=== PATIENT | male | born 1975 | race Caucasian/White ===

== ENCOUNTER 2019-09-09 16:27 | Inpatient (IN) | payer SELFPAY ==
[2019-09-09 16:39] VITALS: BP 107/57; PULSE 103; RESP 18; TEMP 36.8; O2SAT 94
--- NOTE | 2019-09-09 17:17 | ECG_ITS ---
[facility] Test Date: 2019-09-09 Pat Name: Maciel Jj Department: Room: Gender: Male Patient Centered Care Specialist: : 1975 Requested By: Carmina Babin Order Number: [id number] Lacey MD: Stephany rBaden M.D. Measurements Intervals [place] Rate: 87 P: 29 WY: 138 QRS: -60 QRSD: 97 T: 49 QT: 361 QTc: 437 Interpretive Statements SINUS RHYTHM PATTERN CONSISTENT WITH PULMONARY DISEASE INCOMPLETE RIGHT BUNDLE BRANCH BLOCK [90+ ms QRS DURATION, TERMINAL R IN V1/V2, 40+ ms S IN I/aVL/V4/V5/V6] LEFT ANTERIOR FASCICULAR BLOCK [QRS AXIS <= -45, QR IN I, RS IN II] No previous ECG available for comparison Electronically Signed On 09-09-2019 20:35:14 CDT by Stephany Braden M.D. [email or web address]
[2019-09-09 17:18] VITALS: RESP 18
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
[2019-09-09 17:38] LABS: Basophils # 0.1 10^3/uL (0.0-0.1); Basophils % 0.8 %; Eosinophils # 0.1 10^3/uL (0.0-0.8); Eosinophils % 0.9 %; Hematocrit 51.7 % (42.0-52.0); Hemoglobin 16.9 g/dL (11.7-16.6); Lymphocytes # 2.3 10^3/uL (0.8-4.8); Lymphocytes % 25.8 %; Mean Corpuscular HGB Conc 32.7 g/dL (30.0-36.0); Mean Corpuscular Hemoglobin 28.5 pg (28.0-34.0); Mean Corpuscular Volume 87.2 fL (80-94); Monocytes # 0.7 10^3/uL (0.2-0.9); Neutrophils # 5.76 10^3/uL (1.8-7.7); Neutrophils % 64.2 %; Nucleated Red Blood Cells % 0 %; Platelet Count 266 10^3/cmm (130-400); Red Blood Count 5.93 10^6/uL (4.1-5.3); Red Cell Distribution Width 13.8 % (12.1-15.1)
[2019-09-09 17:48] LABS: Amphetamines Screen Urine Positive (Negative); Barbiturates Screen Urine Negative (Negative); Benzodiazepines Screen Urine Negative (Negative); Cocaine Screen Urine Negative (Negative); Opiate Screen Urine Negative (Negative); PCP Screen Urine Negative (Negative); THC Screen Urine Negative (Negative)
[2019-09-09] MEDS: LORazepam 1 mg Tablet PO (17:55)
[2019-09-09 18:13] LABS: Alanine Aminotransferase 17 U/L (0-41); Albumin Level 4.3 g/dL (3.5-5.2); Alcohol Level 209 mg/dL (0-10); Alkaline Phosphatase 90 IU/L (40-130); Anion Gap 17.1 (5-19); Aspartate Amino Transferase 23 U/L (0-40); Blood Urea Nitrogen 10 mg/dL (6-20); Calcium 9.1 mg/dL (8.5-10.5); Carbon Dioxide 22 mmol/L (22-29); Chloride 108 mmol/L (98-107); Globulin 2.5 g/dL (1.3-4.6); Glomerular Filtration Rate 90.8 mL/min (90-130); Glucose 122 mg/dL (65-115); Osmolality Calculated 293 mOsm/kg (285-295); Phenytoin Dilantin 0.8 ug/mL (10-20); Potassium 4.1 mmol/L (3.5-5.1); Sodium 143 mmol/L (136-145); Thyroid Stimulating Hormone 1.88 uIU/mL (0.27-4.20); Total Bilirubin 0.4 mg/dL (0.15-1.2); Total Protein 6.8 g/dL (6.6-8.7); Valproic Acid Level 2.8 ug/mL (50-100)
[2019-09-09 18:14] LABS: Acetaminophen < 5.0 ug/mL (10-30); Salicylate < 0.3 mg/dL (3-10)
[2019-09-09 18:50] LABS: Lithium 0.1 mmol/L (0.6-1.2)
[2019-09-09 19:18] VITALS: BP 104/65; PULSE 64; RESP 16; TEMP 36.1; O2SAT 98
[2019-09-09 19:23] VITALS: BP 104/65; PULSE 64; RESP 16; TEMP 36.1; O2SAT 98
[2019-09-09 20:22] VITALS: BP 113/76; PULSE 85; RESP 15; TEMP 36.7; O2SAT 96
[2019-09-09] MEDS: hyDROXYzine 25 mg Capsule 50 MG PO (21:34)
[2019-09-09] MEDS: trazodone 50 mg Tablet PO (21:34)
--- NOTE | 2019-09-10 03:49 | PC.NURSE ---
At HS, pt was given PRN trazodone and vistaril per request.
[2019-09-10 06:00] VITALS: BP 115/76; PULSE 67; RESP 18; TEMP 37.1; O2SAT 95
[2019-09-10 14:00] VITALS: BP 112/76; PULSE 96; RESP 20; TEMP 36.9; O2SAT 97
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
[2019-09-10] MEDS: citalopram 20 mg Tablet 10 MG PO (19:50)
[2019-09-10 20:50] VITALS: BP 114/81; PULSE 78; RESP 18; TEMP 36.9; O2SAT 97
[2019-09-10] MEDS: trazodone 50 mg Tablet PO (21:20)
[2019-09-10] MEDS: hyDROXYzine 25 mg Capsule 50 MG PO (21:20)
[2019-09-11 06:00] VITALS: BP 120/81; PULSE 61; RESP 12; TEMP 36.7; O2SAT 97
[2019-09-11] MEDS: citalopram 20 mg Tablet PO (08:28)
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
[2019-09-11 14:00] VITALS: BP 168/82; PULSE 78; RESP 20; TEMP 36.6; O2SAT 98
[2019-09-11 20:50] VITALS: BP 108/73; PULSE 70; RESP 17; TEMP 38.1; O2SAT 97
[2019-09-11] MEDS: hyDROXYzine 25 mg Capsule 50 MG PO (21:38)
[2019-09-11] MEDS: trazodone 50 mg Tablet PO (21:39)
--- NOTE | 2019-09-11 23:47 | PC.NURSE ---
pt given prn trazodone and vistaril per request.
[2019-09-12 06:00] VITALS: BP 105/75; PULSE 85; RESP 17; TEMP 36.7; O2SAT 96
[2019-09-12] MEDS: citalopram 20 mg Tablet PO (08:29)
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
[2019-09-12 12:47] VITALS: BP 105/75; PULSE 85; RESP 17; TEMP 36.7; O2SAT 96
== END 2019-09-12 13:20 | disposition home or self-care (01) | DRG 882 ==
LOC: ER 18:28 → NP 19:11
PROVIDERS: Emergency Medicine; Admitting Provider Psychiatry & Neurology Psychiatry; Visit Provider Psychiatry & Neurology Psychiatry
DX: F43.24 Adjustment disorder with disturbance of conduct (principal); F10.10 Alcohol abuse, uncomplicated; F41.8 Other specified anxiety disorders; Y90.7 Blood alcohol level of 200-239 mg/100 ml
CPT/HCPCS: 12345; 36415; 80053; 80156; 80164; 80178; 80185; 80306; 80307; 84443; 85025; 93005; 99284

== ENCOUNTER → 2020-04-21 08:14 | Outpatient (BNVA) | payer OTHER, SELFPAY | PROVIDERS: Visit Provider Psychiatry & Neurology Psychiatry | DX: Z03.89 Encounter for observation for other suspected diseases and conditions ruled out (principal); Z79.899 Other long term (current) drug therapy | CPT/HCPCS: 80048; 80061; 83036; 84443; 85025 ==

== ENCOUNTER 2020-10-11 15:12 | Emergency (ER) | payer SELFPAY ==
[2020-10-11 15:24] VITALS: BP 126/94; PULSE 96; RESP 18; TEMP 37.2; O2SAT 98; BMI 22.8
[2020-10-11] MEDS: lidocaine 1% INJ 20 mL INTRADERMA (15:33)
[2020-10-11] MEDS: tetanus-dipt-pertussis 0.5 mL SDV IM (15:34)
--- NOTE | 2020-10-11 15:37 | W.ED.WOUNDLC ---
HPI - Wound/Laceration General: Chief Complaint: Wound/Laceration Stated Complaint: FISH HOOK EMBEDDED IN L HAND Time Seen by Provider: 10/11/20 15:20 Source: patient Mode of arrival: ambulatory Limitations: no limitations History of Present Illness: HPI narrative: 45-year-old male who presents to the emergency department after a fishhook got stuck in his left hand. This happened about 30 minutes ago. He was going through his drawer getting ready for a fishing trip when there was apparently a fishhook in the drawer that got stuck in the palm of his left hand. He attempted to remove it but was unsuccessful so he came to the emergency department to be evaluated. Onset (ago): minute(s) (30) Extremity Location: Left: hand Place: home Patient tetanus UTD: No Context: accidental Associated symptoms: Denies chills, fever(s), foreign body sensation, inability to move, nausea, numbness, pain, syncope or vomiting Review of Systems General: Reports: 10 or more systems reviewed and unremarkable except in HPI and below Const: Denies: fever(s) or chills Card: Denies: syncope GI: Denies: nausea or vomiting [facility] ED PFSH: Medical History Encounter for observation for other suspected diseases and conditions ruled out PTSD (post-traumatic stress disorder) Social History Smoking and tobacco status: current some day smoker cigarettes and e-cigarettes E-Cigarette Details: vaporizer device Quit status (tobacco): not considering quitting Second hand smoke exposure: Yes Smoking risk assessment/counseling performed?: Yes Tobacco counseling given: counseling >3 minutes Current gender identity: Male Physical Exam Const: COMMON NORMALS: no acute distress, average body habitus, patient oriented x3, no limitations, healthy appearing, alert and well nourished HENMT: COMMON NORMALS: normocephalic, atraumatic and moist oral mucous membranes HEAD & SCALP: normocephalic and atraumatic Neck/C-Spine: COMMON NORMALS: no JVD Resp: COMMON NORMALS: normal respiratory effort, No retractions, No use of accessory muscles, clear to auscultation bilaterally and percussion normal AUSCULTATION: clear to auscultation bilaterally PERCUSSION: percussion normal Cardio: COMMON NORMALS: no JVD, regular rate, regular rhythm, S1 normal heart sound present, S2 normal heart sound present, No gallops present (Cardio), No clicks present (Cardio), No murmurs present (Cardio), No rub (Cardio) and Peripheral pulses 2+ throughout RATE: regular rate RHYTHM: regular rhythm HEART SOUNDS: S1 normal heart sound present and S2 normal heart sound present PERIPHERAL PULSES: Peripheral pulses 2+ throughout Extremity: COMMON NORMALS: normal to inspection, full ROM, capillary refill normal, no calf tenderness and no pedal edema LEFT UPPER EXTREMITY: Yes hand & digits (fish hook in the proximal palm. marisa embedded. No other injuries) Neuro: COMMON NORMALS: patient oriented x3 SENSORIUM/ORIENTATION: Yes alert Skin: COMMON NORMALS: no rashes or lesions noted, no wounds, turgor normal, no jaundice, no petechiae and no mottling GENERAL SKIN EXAM: no rashes or lesions noted and turgor normal Procedures Foreign Body Removal Time Out Performed: yes Site: left and hand Description of foreign body: fish hook Sedation/Analgesia: none Technique: removal with forceps and incision made to facilitate removal Confirmed by:: direct visualization Complications: none Post-procedure exam: awake, alert, normal BP, normal HR and normal O2 sat Neurovascular: normal distal pulse, normal capillary fill, distal light touch sensation intact, distal motor function normal, no signs of compartment syndrome and no change from pre-procedure Course Vital Signs: Vital signs: Vital Signs Temperature 98.9 F 10/11/20 15:24 Pulse Rate 89 10/11/20 15:38 Respiratory Rate 18 10/11/20 15:38 Blood Pressure 121/89 10/11/20 15:38 Pulse Oximetry 97 10/11/20 15:38 MDM - Wound/Laceration MDM Narrative: Medical decision making narrative: This male presents to the ED with a fishhook in his left palm. No other injuries. He was not up-to-date on his tetanus and he was given a tetanus shot in the emergency department today. Difficult Run was successfully removed after the area was infiltrated with 1% lidocaine and a tiny incision was made to free of the marisa. He is discharged home with a prescription for oral antibiotics for prophylaxis. He is to follow-up with his primary care provider. Discharge Plan Discharge Patient Disposition: Home Clinical Impression: Fish hook injury of hand Qualifiers: Encounter type: initial encounter Laterality: left Qualified Code(s): S69.92XA - Unspecified injury of left wrist, hand and finger(s), initial encounter Condition: Stable Prescriptions: New cephalexin 500 mg capsule 500 mg PO TID 7 Days Qty: 21 RF: 0 Continued citalopram 40 mg tablet 40 mg PO DAILY 30 Days Qty: 30 RF: 3 buspirone 10 mg tablet 10 mg PO BID PRN (Reason: anxiety) 30 Days Qty: 60 RF: 3 quetiapine 50 mg tablet 50 mg PO .qhs 30 Days Qty: 30 RF: 3 Discharge Orders: Discharge ED (Routine); Ordered 10/11/20 Ordered By: Florencio Neil Discharge Diet: Usual diet Discharge Activity: Increase activity as tolerated Patient Instructions: Difficult Run Injuries Activity Restrictions/Additional Instructions: Return for any new or worsening symptoms. Follow-up with your primary care provider within 3 days for wound evaluation. Keep the wound clean and dry. Clean the wound daily with soap and water. Take the antibiotic as prescribed. Coding Level of Care Code ED Coordinator Of Library Services for Kurt Cintron
[2020-10-11 15:38] VITALS: BP 121/89; PULSE 89; RESP 18; O2SAT 97
== END 2020-10-11 15:43 | disposition home or self-care (01) ==
PROVIDERS: Emergency Provider Family Medicine
DX: S60.552A Superficial foreign body of left hand, initial encounter (principal); W45.8XXA Other foreign body or object entering through skin, initial encounter
CPT/HCPCS: 10120; 90471; 90715; 99283

== ENCOUNTER 2022-01-21 00:50 | Emergency (ER) | payer BC, MEDICAID, SELFPAY ==
[2022-01-21 00:54] VITALS: BP 116/65; PULSE 60; RESP 18; TEMP 36.6; O2SAT 96; BMI 24.3
--- NOTE | 2022-01-21 01:02 | XRR_ITS ---
PROCEDURE INFORMATION: Exam: XR Right Shoulder Exam date and time: 01/21/2022 1:05 AM Age: 46 years old Clinical indication: Right; Patient HX: C/O worsening RT shoulder pain x 2 weeks. ; Additional info: Injury TECHNIQUE: Imaging protocol: Radiologic exam of the Right shoulder. Views: 2 or more views. COMPARISON: No relevant prior studies available. FINDINGS: Bones/joints: No fracture or dislocation. Mild right shoulder DJD. Soft tissues: Normal. XR/XR shoulder RT min 2V* [id number] IMPRESSION: No acute findings.
--- NOTE | 2022-01-21 01:04 | W.ED.EXTPRO ---
HPI - Extremity Problem General: Chief complaint: Extremity Injury, Upper Stated complaint: Rt Shoulder Pain Going down Time Seen by Provider: 01/21/22 00:52 Source: patient Mode of arrival: ambulatory Limitations: no limitations History of Present Illness: 46-year-old male states he has been having right shoulder pain over the last 2 to 3 weeks. States the pain is been sharp in nature its been worse with movement he states that yesterday he fell and landed on that shoulder. He states been having worsening pain since then denies any his head denies any neck pain Associated symptoms: Deny chest pain, fever(s) or rash Review of Systems Const: Denies: fever(s), chills, body aches or change in appetite Eyes: Denies: blurry vision or eye discomfort ENMT: Denies: throat pain or dental pain Card: Denies: chest pain Resp: Denies: dyspnea GI: Denies: abdominal pain, nausea, vomiting or diarrhea : Denies: dysuria Musc: Reports: extremity pain Skin/Breast: Denies: rash Neuro: Denies: headache(s) Psych: Denies: depression Elvin/Lymph: Denies: easy bruising All/Imm: Denies: urticaria PFSH ED PFSH: Medical History Encounter for observation for other suspected diseases and conditions ruled out Psychiatric care PTSD (post-traumatic stress disorder) Social History Smoking and tobacco status: current some day smoker cigarettes and e-cigarettes E-Cigarette Details: vaporizer device Quit status (tobacco): not considering quitting Second hand smoke exposure: Yes Smoking risk assessment/counseling performed?: Yes Tobacco counseling given: counseling >3 minutes Current gender identity: Male Physical Exam Const: COMMON NORMALS: no acute distress, patient oriented x3 and healthy appearing HENMT: COMMON NORMALS: normocephalic and atraumatic HEAD & SCALP: normocephalic and atraumatic Eye: COMMON NORMALS: conjunctivae normal CONJUNCTIVA: Yes conjunctivae normal Neck/C-Spine: COMMON NORMALS: full ROM and supple Chest: COMMONS NORMALS: normal inspection of the chest Resp: COMMON NORMALS: normal respiratory effort Cardio: COMMON NORMALS: regular rate and No murmurs present (Cardio) RATE: regular rate GI: INSPECTION: Yes normal to inspection Extremity: NARRATIVE EXTREMITY EXAM: Tenderness noted over right trapezius and right shoulder he does have pain with range of motion distal pulses and sensation intact Neuro: COMMON NORMALS: patient oriented x3, moves all extremities and no focal motor deficits Psych: COMMON NORMALS: mental status grossly normal, Normal thought process present and cooperative THOUGHT PROCESS: Normal thought process present Skin: COMMON NORMALS: no rashes or lesions noted and no wounds GENERAL SKIN EXAM: no rashes or lesions noted Course Vital Signs: Vital signs: Vital Signs Temperature 98 F 01/21/22 00:54 Pulse Rate 60 01/21/22 00:54 Respiratory Rate 18 01/21/22 00:54 Blood Pressure 116/65 01/21/22 00:54 Pulse Oximetry 96 01/21/22 00:54 Oxygen Delivery Me thod 01/21/22 00:54 MDM - Extremity (Nontraumatic) Medical Decision Making NapPatient presents with right shoulder pain likely a sprain strain x-ray shows no acute abnormalities he is to follow-up with orthopedics return if worsening. Discharge Plan Discharge Patient Disposition: Home Clinical Impression: Sprain of right shoulder Condition: Stable Prescriptions: New methocarbamol 750 mg tablet 750 mg PO Q6H PRN (Reason: spasms) Qty: 20 0RF Naprosyn 500 mg tablet 500 mg PO BID PRN (Reason: pain) Qty: 20 0RF No Action bupropion HCl 150 mg tablet extended release 24 hr 150 mg PO QAM Label Comments: not taking this medication Discharge Orders: Discharge ED (Routine); Ordered 01/21/22 Ordered By: Vilma Huang Referrals: Mirza Zazueta DO [Physician] - 1-3 days Discharge Diet: Advance as tolerated Discharge Activity: Resume usual activity Patient Instructions: Shoulder Sprain (ED) Coding Level of Care Code ED Corrugated Box Machine Operator for Geminig Fwd Exam Comprehensive
[2022-01-21] MEDS: ketorolac 30 mg/mL INJ IM (01:16)
--- NOTE | 2022-01-21 11:49 | DCPLANNER ---
Addendum entered by Kailee Castro 01/25/22 14:54: Patient had a follow up appointment scheduled for 01.25.22 with Matthew Chanel at ortho - patient did attend appointment. Original Note: manager tax had message to schedule a follow up appointment for patient with ortho. manager tax sent patients information to the front office staff at ortho. Patients information will be printed and reviewed. Clinic will call patient with appointment information.
== END 2022-01-21 01:28 | disposition home or self-care (01) ==
PROVIDERS: Emergency Provider Emergency Medicine
DX: S43.401A Unspecified sprain of right shoulder joint, initial encounter (principal); W19.XXXA Unspecified fall, initial encounter
CPT/HCPCS: 73030; 96372; 99284; J1885

== ENCOUNTER 2024-07-10 11:20 | Emergency (ER) | payer SELFPAY ==
[2024-07-10 11:23] VITALS: BP 128/92; PULSE 84; RESP 18; TEMP 36.8; O2SAT 97
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
[2024-07-10 14:07] VITALS: BP 130/98; PULSE 92; O2SAT 98
== END 2024-07-10 14:09 | disposition home or self-care (01) ==
PROVIDERS: Emergency Provider Emergency Medicine
DX: S06.0X0A Concussion without loss of consciousness, initial encounter (principal); Y04.0XXA Assault by unarmed brawl or fight, initial encounter
CPT/HCPCS: 70450; 70486; 99284